=== PATIENT | female | born 1935 | race Caucasian/White ===

== ENCOUNTER 2020-06-15 15:35 | Inpatient (IN) | payer MEDICARE, OTHER ==
[~2020-06-15] VITALS: Ht 152.4 cm; Wt 72.6 kg
--- NOTE | 2020-06-15 15:48 | NUR ---
JENNA 89 from home for palpitation. placed on the monitor. EKC done, awaiting for MD bazzi.
--- NOTE | 2020-06-15 16:08 | NUR ---
patient ambulated to bathroom with steady gait, assisted by EMT
--- NOTE | 2020-06-15 16:25 | NUR ---
CALLED CARDIO DR. NESS.
[2020-06-15 16:26] LABS: BASOPHILS # (AUTO) 0.1 /CMM (0.0-0.2); BASOPHILS % (AUTO) 0.8 % (0.0-2.0); EOSINOPHILS % (AUTO) 0.6 % (0.0-6.0); HEMATOCRIT 43 % (33-45); HEMOGLOBIN 14.1 g/dL (11.5-14.8); LYMPHOCYTES % (AUTO) 13.1 % (20.0-44.0); MEAN CORPUSCULAR HGB CONC 33 g/dl (31.0-36.0); MEAN CORPUSCULAR VOLUME 86 fL (82-100); MONOCYTES # (AUTO) 0.6 /CMM (0.1-1.30); MONOCYTES % (AUTO) 8.2 % (2.0-12.0); NEUTROPHILS % (AUTO) 77.3 % (43.0-81.0); PLATELET COUNT (AUTO) 175 /CMM (150-450); RED BLOOD CELL COUNT(AUTO) 5.01 MIL/uL (4.0-5.2); WHITE BLOOD COUNT (AUTO) 7.7 K/uL (4.3-11.0)
[2020-06-15] MEDS ORDERED: AMIODARONE HCL 200 MG TABLET PO ONE (16:30)
[2020-06-15] MEDS ORDERED: ENOXAPARIN SODIUM 80 MG/0.8 ML DISP.SYRIN SQ ONE (16:33)
[2020-06-15] MEDS ORDERED: AMIODARONE HCL 200 MG TABLET ONE (16:33)
[2020-06-15 16:35] LABS: CALCIUM, SERUM 8.9 mg/dL (8.5-10.1); CARBON DIOXIDE 23 mmol/L (21-32); CHLORIDE 99 mmol/L (98-107); CREATININE 0.7 mg/dL (0.6-1.3); GLUCOSE 113 mg/dL (74-106); POTASSIUM 3.8 mmol/L (3.5-5.1); SODIUM SERUM 135 mmol/L (136-145); UREA NITROGEN, BLOOD 8 mg/dL (7-18)
[2020-06-15] MEDS ORDERED: LEVO50TA8 PO (16:47)
[2020-06-15] MEDS ORDERED: LOSA1TAB36 PO (16:47)
[2020-06-15] MEDS ORDERED: MECL-159 PO (16:47)
[2020-06-15] MEDS ORDERED: LINA290C PO (16:47)
[2020-06-15] MEDS ORDERED: AZAT50TA18 PO (16:47)
[2020-06-15] MEDS ORDERED: ALPR0.255 PO (16:47)
[2020-06-15] MEDS ORDERED: OMEP20CA15 PO (16:47)
[2020-06-15] MEDS ORDERED: ASPI-1169 PO (16:47)
[2020-06-15] MEDS ORDERED: AMIO200T4 PO (16:47)
[2020-06-15] MEDS ORDERED: METO25TA4 PO (16:47)
[2020-06-15] MEDS ORDERED: HYDR25TA4 PO (16:47)
[2020-06-15] MEDS ORDERED: SENN-175 PO (16:47)
[2020-06-15] MEDS ORDERED: ESCI10TA PO (16:47)
[2020-06-15] MEDS ORDERED: CYCL30DR OP (16:47)
[2020-06-15] MEDS ORDERED: METF-881 PO (16:47)
[2020-06-15] MEDS ORDERED: BISA5TAB PO (16:47)
[2020-06-15] MEDS ORDERED: ROSU10TA29 PO (16:47)
[2020-06-15] MEDS ORDERED: HYDR-500 PO (16:47)
[2020-06-15] MEDS ORDERED: ENOXAPARIN SODIUM 80 MG/0.8 ML DISP.SYRIN SQ SCH (17:00)
[2020-06-15 17:05] LABS: ALBUMIN 4.4 g/dL (3.4-5.0); BILIRUBIN,DIRECT 0.1 mg/dL (0.0-0.2); BILIRUBIN,TOTAL 0.5 mg/dL (0.2-1.0); TOTAL PROTEIN, SERUM 8.5 g/dL (6.4-8.2)
--- NOTE | 2020-06-15 17:05 | NUR ---
MOVE SHEET SUBMITTED AND CALLED FOR A TELE BED.
--- NOTE | 2020-06-15 17:06 | NUR ---
URINE COLLECTED AND SENT TO LAB
[2020-06-15] MEDS ORDERED: ACETAMINOPHEN 325 MG TABLET PO PRN (17:30)
[2020-06-15] MEDS ORDERED: ONDANSETRON HCL/PF 4 MG/2 ML VIAL IVP PRN (17:30)
[2020-06-15] MEDS ORDERED: BISACODYL (5 MG) 5 MG TABLET.DR PO PRN (17:30)
[2020-06-15] MEDS ORDERED: Z GUARD REMEDY 2 OZ OINT TP PRN (17:30)
[2020-06-15] MEDS ORDERED: HYDROCODONE/APAP 5/325MG TABLET PO PRN (17:30)
[2020-06-15] MEDS ORDERED: HOME MED MISCELLANEOUS XX SCH (17:30)
[2020-06-15] MEDS ORDERED: MAGNESIUM HYDROXIDE 30 ML UDC PO PRN (17:30)
[2020-06-15] MEDS ORDERED: MORPHINE SULFATE INJ 2 MG/ML DISP.SYRIN IV PRN (17:30)
[2020-06-15] MEDS ORDERED: MAG HYDROX/AL HYDROX/SIMETH 30 ML UDC PO PRN (17:30)
[2020-06-15 17:37] LABS: APPEARANCE,URINE Clear (CLEAR); BILIRUBIN,URINE Negative (NEGATIVE); BLOOD, URINE Trace-lysed Ery/uL (NEGATIVE); COLOR,URINE Yellow (YELLOW); KETONES,URINE Negative (NEGATIVE); LEUKOCYTE ESTERASE ,URINE Negative (NEGATIVE); NITRITE, URINE Negative (NEGATIVE); PH,URINE 7.5 (5.0-8.0); PROTEIN,URINE Negative (NEGATIVE); UGLUCOSE Negative (NEGATIVE); UROBILINOGEN,URINE 0.2 EU/dL (0.2)
[2020-06-15] MEDS ORDERED: INSULIN REGULAR, HUMAN 100 UNIT/ML 3 ML VIAL SQ PRN (18:00)
[2020-06-15] MEDS ORDERED: DEXTROSE 50%-WATER 50 ML DISP.SYRIN IV PRN (18:00)
[2020-06-15 18:02] LABS: BACTERIA,URINE Rare /HPF (None Seen); RBC,URINE 0-2 /HPF (0-2); SQUAMOUS EPITHELIAL CELL,UR None Seen /HPF (None Seen); WBC,URINE NONE SEEN /HPF (0-3)
--- NOTE | 2020-06-15 18:38 | NUR ---
room 311-2
--- NOTE | 2020-06-15 18:42 | NUR ---
report given to bere Rodriguez for berry
--- NOTE | 2020-06-15 19:37 | NUR ---
pt taken to 311 via acls protocol
--- NOTE | 2020-06-15 19:40 | NUR ---
BEATER OPERATOR OPEN NOTES RECEIVED PT VIA [facility]. PATIENT WAS ABLE TO AMBULATE TO BED. A/O X4, CZECH SPEAKING. ON RA, NO SOB/ ACUTE RESPIRATORY DISTRESS NOTED. IV IN R FOREARM, #18G IS PATENT AND INTACT. PATIENT ORIENTED TO ROOM. PT WAS ALSO ABLE TO AMBULATE TO BATHROOM. PT STATES SHE HAS NO CHEST PAIN OR ANY PAIN AT THE MOMENT. BED IS IN LOWEST LOCKED POSITION WITH SIDE RAILS UP X3, SEMI FOWLERS. CALL LIGHT IS WITHIN REACH. WILL CONTINUE TO MONITOR.
[2020-06-15 20:58] VITALS: BP 91/64
[2020-06-15] MEDS: BLOOD SUGAR DIAGNOSTIC 1 EACH STRIP IN SCH (21:37)
[2020-06-15] MEDS: ATORVASTATIN 10 MG TABLET PO SCH (21:38)
[2020-06-15] MEDS: SENNOSIDES 8.6 MG TABLET PO SCH (21:38)
[2020-06-15] MEDS: TEMAZEPAM 15 MG CAPSULE PO PRN (22:03)
[2020-06-16] VITALS: BP 133/68
[2020-06-16] MEDS: BLOOD SUGAR DIAGNOSTIC 1 EACH STRIP IN SCH ×4 (06:47→21:47)
--- NOTE | 2020-06-16 06:49 | NUR ---
NURSE SANE CLOSE NOTES PATIENT IS LAYING IN BED. A/O X4. ON RA, NO SOB/ ACUTE RESPIRATORY DISTRESS NOTED. TELE MONITOR READING A. FIB WITH PVC'S, 89. IV IN R FOREARM #18G IS PATENT AND INTACT. PT KEPT NPO THROUGH THE NIGHT. HAS NO COMPLAINTS OF PAIN AT THE MOMENT/ APPEARS COMFORTABLE. PT IS ABLE TO AMBULATE. BED IS IN LOWEST LOCKED POSITION WITH SIDE RAILS UP X3, SEMI FOWLERS. CALL LIGHT IS WITHIN REACH. WILL ENDORSE TO AM NURSE.
[2020-06-16 06:50] LABS: BASOPHILS # (AUTO) 0.1 /CMM (0.0-0.2); BASOPHILS % (AUTO) 0.7 % (0.0-2.0); EOSINOPHILS % (AUTO) 1.5 % (0.0-6.0); HEMATOCRIT 42 % (33-45); LYMPHOCYTES # (AUTO) 1.9 /CMM (0.8-4.8); LYMPHOCYTES % (AUTO) 24.6 % (20.0-44.0); MEAN CORPUSCULAR HGB CONC 33 g/dl (31.0-36.0); MEAN CORPUSCULAR VOLUME 85 fL (82-100); MONOCYTES % (AUTO) 12.6 % (2.0-12.0); NEUTROPHILS # (AUTO) 4.8 /CMM (1.8-8.9); NEUTROPHILS % (AUTO) 60.6 % (43.0-81.0); PLATELET COUNT (AUTO) 181 /CMM (150-450); RED BLOOD CELL COUNT(AUTO) 4.96 MIL/uL (4.0-5.2); WHITE BLOOD COUNT (AUTO) 7.9 K/uL (4.3-11.0)
[2020-06-16 07:20] LABS: CALCIUM, SERUM 9.3 mg/dL (8.5-10.1); CREATININE 1.1 mg/dL (0.6-1.3); MAGNESIUM 2.4 mg/dL (1.8-2.4); PHOSPHORUS 4.5 mg/dL (2.5-4.9); POTASSIUM 3.7 mmol/L (3.5-5.1)
[2020-06-16 08:00] VITALS: BP 121/64
[2020-06-16] MEDS: ESCITALOPRAM OXALATE (10 MG) 10 MG TABLET PO SCH (08:53)
[2020-06-16] MEDS: LOSARTAN/HCTZ 50-12.5MG/ 1 EA TABLET PO SCH (08:53)
[2020-06-16] MEDS: LEVOTHYROXINE SODIUM 50 MCG TABLET PO SCH (08:53)
[2020-06-16] MEDS: AZATHIOPRINE 50 MG TABLET PO SCH (08:57)
[2020-06-16] MEDS ORDERED: AMIODARONE HCL 200 MG TABLET PO SCH (09:00)
[2020-06-16] MEDS: METOPROLOL SUCCINATE 25 MG TAB.SR.24H PO SCH (09:00)
[2020-06-16] MEDS ORDERED: ENOXAPARIN SODIUM 60 MG/0.6 ML DISP.SYRIN SQ SCH (09:00)
[2020-06-16] MEDS: POLYVINYL ALCOHOL/POVIDONE 0.4 ML DROPERETTE OP SCH ×2 (10:34→18:10)
[2020-06-16 14:03] LABS: THYROID STIMULATING HORMONE 2.211 uIU/mL (0.358-3.74)
[2020-06-16 16:00] VITALS: BP 122/67
[2020-06-16 17:18] LABS: THYROID STIMULATING HORMONE 2.021 uIU/mL (0.358-3.74)
[2020-06-16] MEDS: AMIODARONE HCL 200 MG TABLET PO SCH (18:11)
[2020-06-16] MEDS: APIXABAN 5 MG TABLET PO SCH (18:12)
--- NOTE | 2020-06-16 19:30 | NUR ---
SAMPLE MAKER ORIGINAL OPEN NOTES PATIENT IS LAYING IN BED. A/O X4. ON RA SATURATING > 95%, NO SOB/ ACUTE RESPIRATORY DISTRESS NOTED. IV IN R FOREARM #18G IS PATENT AND INTACT. PT DENIES ANY PAIN AT THE MOMENT. BED IS IN LOWEST LOCKED POSITION WITH SIDE RAILS UP X3, SEMI FOWLERS. CALL LIGHT IS WITHIN REACH. WILL CONTINUE TO MONITOR.
[2020-06-16 20:00] VITALS: BP 126/64
[2020-06-16] MEDS: ATORVASTATIN 10 MG TABLET PO SCH (21:47)
[2020-06-16] MEDS: SENNOSIDES 8.6 MG TABLET PO SCH (21:47)
[2020-06-16] MEDS: TEMAZEPAM 15 MG CAPSULE PO PRN (21:47)
[2020-06-17 00:07] VITALS: BP 123/57
--- NOTE | 2020-06-17 03:25 | NUR ---
SEO MANAGER NOTES DIRECT MARKETING REPRESENTATIVE ARRIVED TO ROOM AND FOUND PATIENT ON THE FLOOR NEXT TO HER BED. FALL WAS UNWITNESSED. PER PATIENT, SHE STATED SHE WENT TO THE BATHROOM, WALKED BACK TO HER BED AND FELL NEXT TO IT. PT DENIES ANY PAIN OR INJURY AND STATES SHE DID NOT HIT HER HEAD. SKIN ASSESSMENT DONE. PATIENT ABLE TO FLEX AND EXTEND LEGS. NO INJURIES NOTED. PATIENT WAS ASSISTED BACK TO BED. BP OBTAINED: 103/56, HR 53. CHARGE NURSE AWARE. NURSING FIRE AND SAFETY HELPER AWARE. MD AWARE, PER MD NO ORDERS NEEDED. ASSESSED SKIN, CHECKED LEG FLEXION/ EXTENSION, OBTAINED BLOOD PRESSURE(103/56) + HEART RATE(53).
[2020-06-17 04:12] VITALS: BP 103/56
[2020-06-17] MEDS: BLOOD SUGAR DIAGNOSTIC 1 EACH STRIP IN SCH ×2 (06:33→12:00)
--- NOTE | 2020-06-17 06:53 | NUR ---
SPACE SCIENCES DIRECTOR NOTES JUST SPOKE TO PT'S SON(BABAR) REGARDING HER FALL. EXPLAINED THE SITUATION TO HIM + INTERVENTIONS THAT WERE DONE AFTERWARDS. PT'S SON ALSO STATED THAT HE WOULD WANT HIS MOM TO BE DISCHARGED TODAY BECAUSE HER SISTER JUST AND HER IS TOMORROW.
--- NOTE | 2020-06-17 06:55 | NUR ---
PARTS COUNTER SALES PERSON CLOSE NOTES PATIENT IS LAYING IN BED. A/O X4. ON RA, NO SOB/ ACUTE RESPIRATORY DISTRESS NOTED. TELE MONITOR READING SINUS CHE WITH PVCS, 56. IV IN RIGHT FOREARM #18G IS PATENT AND INTACT. ALL ACCUCHECKS DONE. PT ABLE TO AMBULATE WITH ASSISTANCE/ WALKER. PT HAS NO COMPLAINTS OF PAIN AT THE MOMENT. BED IS IN LOWEST LOCKED POSITION WITH SIDE RAILS UP X3, SEMI FOWLERS. CALL LIGHT IS WITHIN REACH. WILL ENDORSE TO AM NURSE.
[2020-06-17 08:00] VITALS: BP 113/61
--- NOTE | 2020-06-17 08:10 | NUR ---
Amiodarone is not administrated in am due ti HR 57
[2020-06-17] MEDS: ESCITALOPRAM OXALATE (10 MG) 10 MG TABLET PO SCH (08:48)
[2020-06-17] MEDS: LEVOTHYROXINE SODIUM 50 MCG TABLET PO SCH (08:48)
[2020-06-17] MEDS: METOPROLOL SUCCINATE 25 MG TAB.SR.24H PO SCH (08:48)
[2020-06-17] MEDS: LOSARTAN/HCTZ 50-12.5MG/ 1 EA TABLET PO SCH (08:49)
[2020-06-17] MEDS: APIXABAN 5 MG TABLET PO SCH (08:50)
[2020-06-17 08:51] VITALS: BP 113/61
[2020-06-17] MEDS: AMIODARONE HCL 200 MG TABLET PO SCH (08:51)
[2020-06-17] MEDS: POLYVINYL ALCOHOL/POVIDONE 0.4 ML DROPERETTE OP SCH (08:53)
[2020-06-17] MEDS: AZATHIOPRINE 50 MG TABLET PO SCH (08:54)
--- NOTE | 2020-06-17 16:00 | NUR ---
Patient cleared for d/c to home by . Rhiannaen is awake alert and oriented x4, VS are stable and within base line; HR 62. Patient is ambulatory with assistance/walker. Patient instructed and educated on new prescribed meds ; and s/e. patient verbalized understanding . Patient received a prescription. All needs attended prior d/c. D/C instructions provided and patient sighed valuable form. All belongings with the patient including money , cell phone and bellows charger assembler. IV line and ID wrist band removed. Patient has no skin issues. Patient safely transferred to [facility], [place] via wheelchair accompanied by KATTY Gasca. Pt picked up by son.
== END 2020-06-17 16:11 | disposition home health service (06) | DRG 309 ==
LOC: ER 15:41 → TELE 18:40 → MED 06-17 11:22
PROVIDERS: ADMIT Nurse Practitioner Acute Care; ATTEND Internal Medicine
DX: I48.91 Unspecified atrial fibrillation (principal); E87.1 Hypo-osmolality and hyponatremia; E03.9 Hypothyroidism, unspecified; E11.9 Type 2 diabetes mellitus without complications; E66.9 Obesity, unspecified; Z68.31 Body mass index [BMI] 31.0-31.9, adult; F32.9 Major depressive disorder, single episode, unspecified; K58.9 Irritable bowel syndrome, unspecified; I10 Essential (primary) hypertension; E78.5 Hyperlipidemia, unspecified; M06.9 Rheumatoid arthritis, unspecified; I48.92 Unspecified atrial flutter; Z90.49 Acquired absence of other specified parts of digestive tract; Z79.899 Other long term (current) drug therapy; Z79.01 Long term (current) use of anticoagulants
CPT/HCPCS: 36415; 71045-TC; 80048-TC; 80061-TC; 80076-TC; 81000-TC; 82962-TC; 83735-TC; 84100-TC; 84439-TC; 84443-TC; 84484-TC; 85025-TC; 87081-TC; 93307-TC; A6403; C9803-CS; G0378; J1650; J1815; J7050; J7500

== ENCOUNTER 2021-10-23 19:44 | Emergency (ER) | payer MEDICARE, OTHER ==
[~2021-10-23] VITALS: Ht 172.7 cm; Wt 65.8 kg
[~2021-10-23 19:44] MED LIST: ALPR0.255 PO; AMIO200T5 PO; ASPI-1169 PO; AZAT50TA18 PO; BISA5TAB PO; CYCL30DR OP; ESCI10TA PO; HYDR-500 PO; HYDR25TA4 PO; LEVO50TA8 PO; LINA290C PO; LOSA1TAB36 PO; MECL-159 PO; METF-881 PO; METO25TA4 PO; OMEP20CA15 PO; ROSU10TA29 PO; SENN-175 PO
--- NOTE | 2021-10-23 19:55 | NUR ---
JENNA 89 FROM HOME C/O NOVOA, HIGH BP AND ELEVATED HR WHILE USING AT HOME V/S MACHINE. PT DENIES ANY CHEST PAIN. BREATHING IS EVEN AND UNLABORED. PT CHANGED INTO A GOWN AND PLACED ON MONITOR AND ALL V/S STABLE HEART RATE 103.
--- NOTE | 2021-10-23 20:24 | NUR ---
RFA #20G S/L; PATENT AND INTACT. BLOOD COLLECTED AND SENT TO LAB
[2021-10-23] MEDS ORDERED: IV NS 0.9% 500 ML BAG IV ONE (20:30)
[2021-10-23 20:55] LABS: ALANINE AMINOTRANSFERASE 20 U/L (12-78); ALKALINE PHOSPHATASE 46 U/L (46-116); ASPARTATE AMINOTRANSFERASE 26 U/L (15-37); BILIRUBIN,DIRECT 0.1 mg/dL (0.0-0.2); BILIRUBIN,TOTAL 0.2 mg/dL (0.2-1.0); CALCIUM, SERUM 8.8 mg/dL (8.5-10.1); CARBON DIOXIDE 25 mmol/L (21-32); CHLORIDE 98 mmol/L (98-107); CREATININE 0.8 mg/dL (0.6-1.3); GLUCOSE 116 mg/dL (74-106); SODIUM SERUM 131 mmol/L (136-145); TOTAL PROTEIN, SERUM 7.6 g/dL (6.4-8.2); UREA NITROGEN, BLOOD 17 mg/dL (7-18)
[2021-10-23 21:05] LABS: BASOPHILS # (AUTO) 0.1 K/uL (0.0-0.2); BASOPHILS % (AUTO) 0.8 % (0.0-2.0); EOSINOPHILS % (AUTO) 1.2 % (0.0-6.0); HEMATOCRIT 35 % (33-45); HEMOGLOBIN 11.4 g/dL (11.5-14.8); LYMPHOCYTES # (AUTO) 1.6 K/uL (0.8-4.8); LYMPHOCYTES % (AUTO) 17.4 % (20.0-44.0); MEAN CORPUSCULAR HGB CONC 33 g/dl (31.0-36.0); MEAN CORPUSCULAR VOLUME 78 fL (82-100); MONOCYTES # (AUTO) 0.9 K/uL (0.1-1.30); MONOCYTES % (AUTO) 10.2 % (2.0-12.0); NEUTROPHILS # (AUTO) 6.6 K/uL (1.8-8.9); NEUTROPHILS % (AUTO) 70.4 % (43.0-81.0); PLATELET COUNT (AUTO) 153 K/uL (150-450); RED BLOOD CELL COUNT(AUTO) 4.43 MIL/uL (4.0-5.2); WHITE BLOOD COUNT (AUTO) 9.3 K/uL (4.3-11.0)
[2021-10-23] MEDS ORDERED: POTASSIUM CHLORIDE 20 MEQ TAB.PRT.SR PO ONE ×2 (21:30→21:34)
--- NOTE | 2021-10-23 21:52 | NUR ---
Patient discharged to home in stable condition. Written and verbal after care instructions given. Patient verbalizes understanding of instruction.
[2021-10-23 21:57] VITALS: BP 132/68
== END 2021-10-23 22:18 | disposition home or self-care (01) ==
LOC: ER 19:50
DX: R00.2 Palpitations (principal); I10 Essential (primary) hypertension; I48.91 Unspecified atrial fibrillation; E11.9 Type 2 diabetes mellitus without complications; Z60.2 Problems related to living alone; Z79.899 Other long term (current) drug therapy; Z79.84 Long term (current) use of oral hypoglycemic drugs; Z79.82 Long term (current) use of aspirin
CPT/HCPCS: 36415; 71045; 80048; 80076; 84484; 85025; 93005; 99285; J7040

== ENCOUNTER 2022-07-21 20:19 | Inpatient (IN) | payer MEDICARE, OTHER ==
[~2022-07-21] VITALS: Ht 157.5 cm; Wt 82.3 kg
--- NOTE | 2022-07-21 21:19 | NUR ---
BIBRA 89 FROM HOME C/O PALPITATIONS STARTED THIS MORNING. PT AWAKE AND ALERT X4 BREATHING UNLABORED AMBULATORY WITH STEADY GAIT. PLACED ON MONITOR AND NOTED TACHYCARDIC IN 120S.
--- NOTE | 2022-07-21 21:50 | NUR ---
PEDRO SENT TO LAB
--- NOTE | 2022-07-21 21:50 | NUR ---
20G IV STARTED AT . BLOOD DRAWN AND SENT TO LAB
[2022-07-21] MEDS ORDERED: IV NS 0.9% 1,000 ML BAG IV ONE (22:00)
[2022-07-21 22:03] LABS: BASOPHILS # (AUTO) 0.1 K/uL (0.0-0.2); BASOPHILS % (AUTO) 0.7 % (0.0-2.0); EOSINOPHILS % (AUTO) 2.4 % (0.0-6.0); HEMATOCRIT 41 % (33-45); HEMOGLOBIN 13.2 g/dL (11.5-14.8); LYMPHOCYTES # (AUTO) 1.8 K/uL (0.8-4.8); LYMPHOCYTES % (AUTO) 22.7 % (20.0-44.0); MEAN CORPUSCULAR HGB CONC 32 g/dl (31.0-36.0); MEAN CORPUSCULAR VOLUME 78 fL (82-100); MONOCYTES % (AUTO) 12.6 % (2.0-12.0); NEUTROPHILS # (AUTO) 4.8 K/uL (1.8-8.9); NEUTROPHILS % (AUTO) 61.6 % (43.0-81.0); PLATELET COUNT (AUTO) 147 K/uL (150-450); WHITE BLOOD COUNT (AUTO) 7.8 K/uL (4.3-11.0)
[2022-07-21 22:11] LABS: CARBON DIOXIDE 25 mmol/L (21-32); CHLORIDE 106 mmol/L (98-107); CREATININE 0.9 mg/dL (0.6-1.3); GLUCOSE 129 mg/dL (74-106); POTASSIUM 3.4 mmol/L (3.5-5.1); SODIUM SERUM 138 mmol/L (136-145); UREA NITROGEN, BLOOD 16 mg/dL (7-18)
[2022-07-21 22:29] LABS: ALANINE AMINOTRANSFERASE 19 U/L (12-78); ALBUMIN 3.8 g/dL (3.4-5.0); ALKALINE PHOSPHATASE 70 U/L (46-116); ASPARTATE AMINOTRANSFERASE 24 U/L (15-37); BILIRUBIN,DIRECT 0.1 mg/dL (0.0-0.2); BILIRUBIN,TOTAL 0.3 mg/dL (0.2-1.0); TOTAL PROTEIN, SERUM 7.6 g/dL (6.4-8.2)
[2022-07-21] MEDS ORDERED: CT SWABBABLE VALVE TRANS SET 1 EA INFUS.SET MC ONE (22:34)
[2022-07-21] MEDS ORDERED: IV NS 0.9% 250 ML IV ONE (22:34)
[2022-07-21] MEDS ORDERED: IOHEXOL-350 100 ML VIAL IV ONE (22:34)
--- NOTE | 2022-07-21 22:36 | NUR ---
PT BEING TRANSPORTED TO CT
[2022-07-21] MEDS ORDERED: CEFEPIME 1 GM VIAL ONE (23:27)
[2022-07-21] MEDS ORDERED: CEFEPIME 1 GM in IV D5W 50 ML IV ONE (23:30)
--- NOTE | 2022-07-22 00:50 | NUR ---
BED 311-1
--- NOTE | 2022-07-22 01:18 | NUR ---
REPORT GIVEN TO IVONE
--- NOTE | 2022-07-22 01:35 | NUR ---
PT TRANSPORTED TO ROOM 311-1 ON CARDIAC PER ACLS IN STABLE CONDITION. WALKER LEFT AT BEDSIDE.
--- NOTE | 2022-07-22 01:57 | NUR ---
BUSINESS OFFICE COORDINATORVICE PRESIDENT & GENERAL MANAGER [place] [place] NOTE PATIENT ARRIVED ON UNIT FROM ER, PT ALERT/ORIENTED X 3, PT BAHAMIAN SPEAKING, ER NURSE PROVIDED TRANSLATION. PT STABLE ON RA, NO S/S OF DISTRESS OR SOB NOTED, BREATHING EVEN AND UNLABORED. PT ON EXTERNAL CIVIL ENGINEER READING SINUS RHYTHM, HR: 68. IV ACCESS ON RIGHT FOREARM #20G INTACT AND FLUSHING WELL. PATIENT AMBULATORY WITH WALKER. PATIENT STATES SHE USES PARTIAL DENTURES BUT DOESN'T HAVE THEM ON. PT DENIES PACEMAKER, NO HEARING AID. PATIENT VACCINATED FOR COVID. ORIENTED PATIENT TO ROOM AND HOW TO USE CALL LIGHT. SAFETY MEASURES IN PLACE: CALL LIGHT WITHIN REACH, SIDE RAILS UP X 2, BED LOCKED IN LOWEST POSITION, BED ALARM ON. WILL CONTINUE TO MONITOR
[2022-07-22 02:00] VITALS: BP 113/47
[2022-07-22] MEDS ORDERED: *INSULIN REGULAR(HUMULIN R)HUM 100 UNIT/ML VIAL SQ PRN (03:00)
[2022-07-22] MEDS ORDERED: POTASSIUM CHLORIDE 20 MEQ TAB.PRT.SR PO ONE (03:00)
[2022-07-22] MEDS ORDERED: ACETAMINOPHEN 325 MG TABLET PO PRN (03:00)
[2022-07-22] MEDS ORDERED: DEXTROSE 50%-WATER 50 ML DISP.SYRIN IV PRN (03:00)
[2022-07-22] MEDS ORDERED: ONDANSETRON HCL/PF 4 MG/2 ML VIAL IVP PRN (03:00)
[2022-07-22] MEDS ORDERED: IV NS 0.9% 1,000 ML IV PRN (03:00)
[2022-07-22 04:00] VITALS: BP 130/50
--- NOTE | 2022-07-22 06:29 | NUR ---
AUTOMATION CLERK CLOSING NOTE PATIENT AWAKE IN BED, ALERT/ORIENTED X 3, PT CAMEROONIAN SPEAKING BUT ABLE TO MAKE BASIC NEEDS KNOWN. PATIENT STABLE ON ROOM AIR, NO S/S OF DISTRESS OR SOB NOTED, BREATHING EVEN AND UNLABORED. PATIENT ON EXTERNAL VIDEO PRODUCTION ASSISTANT READING SINUS RHYTHM, HR: 62. PATIENT ABLE TO AMBULATE TO BATHROOM WITH WALKER, STEADY GAIT. IV ACCESS ON RFA #20G INTACT AND INFUSING NS @ 75 ML/HR. BLOOD SUGAR 117 THIS AM, NO COVERAGE PER SLIDING SCALE. SAFETY MEASURES IN PLACE: CALL LIGHT WITHIN REACH, SIDE RAILS UP X 2, BED LOCKED IN LOWEST POSITION, BED ALARM ON. WILL ENDORSE TO DAYSHIFT NURSE FOR CONTINUITY OF CARE
[2022-07-22] MEDS: INSULIN REGULAR, HUMAN 100 UNIT/ML 3 ML VIAL SQ PRN ×4 (06:50→22:42)
[2022-07-22] MEDS: BLOOD SUGAR DIAGNOSTIC 1 EACH STRIP IN SCH ×4 (06:50→22:28)
--- NOTE | 2022-07-22 07:35 | NUR ---
RN OPENING NOTE- PT AWAKE IN BED, ALERT/ORIENTED X PERSON PLACE PURPOSE, PT [place]ORE[place] SPEAKING BUT ABLE TO MAKE BASIC NEEDS KNOWN. PATIENT STABLE ON ROOM AIR, NO S/S OF DISTRESS OR SOB NOTED, BREATHING EVEN AND UNLABORED. PATIENT ON EXTERNAL HEAVY DUTY MECHANIC READING SINUS RHYTHM, HR: 64. AMBULATORY W FWW. STEADY GAIT. IV ACCESS ON RFA #20G INTACT AND INFUSING NS @ 75 ML/HR. SAFETY MEASURES IN PLACE: CALL LIGHT WITHIN REACH, SIDE RAILS UP X 2, BED LOCKED IN LOWEST POSITION, BED ALARM ON. MONITOR AND ASSIST
[2022-07-22 08:00] VITALS: BP 102/57
[2022-07-22] MEDS ORDERED: MELO-107 PO (08:38)
[2022-07-22] MEDS ORDERED: LOSA50TA39 PO (08:38)
[2022-07-22] MEDS ORDERED: AMLO-212 PO (08:38)
[2022-07-22] MEDS: ENOXAPARIN SODIUM 40 MG/0.4 ML DISP.SYRIN SQ SCH (09:28)
[2022-07-22] MEDS: CEFEPIME 2 GM in IV D5W 100 ML IV SCH ×2 (09:29→21:24)
[2022-07-22] MEDS: POTASSIUM CHLORIDE 20 MEQ TAB.PRT.SR PO SCH ×2 (11:04→14:05)
[2022-07-22] MEDS: PANTOPRAZOLE 40 MG TABLET.DR PO SCH (11:04)
[2022-07-22 12:00] VITALS: BP 126/63
[2022-07-22] MEDS ORDERED: TETRACYCLINE HCL 250 MG CAPSULE PO SCH (14:00)
[2022-07-22] MEDS: predniSONE 20 MG TABLET PO SCH (14:35)
[2022-07-22] MEDS: DOXYCYCLINE HYCLATE (100 MG) 100 MG TABLET PO SCH ×2 (14:35→21:13)
[2022-07-22 16:00] VITALS: BP 117/63
--- NOTE | 2022-07-22 18:29 | NUR ---
RN CLOSING NOTE- PT AWAKE AND AMBULATORY IN HALLS WITH FWW. STEADY GAIT, ALERT/ORIENTED X PERSON PLACE PURPOSE, PT DIVEHI SPEAKING BUT ABLE TO MAKE BASIC NEEDS KNOWN. PATIENT STABLE ON ROOM AIR, NO S/S OF DISTRESS OR SOB NOTED, BREATHING EVEN AND NON LABORED. PATIENT ON EXTERNAL MOTORMAN/WOMAN READING SINUS RHYTHM, HR: 88. IV ACCESS ON RFA #20G INTACT. SAFETY MEASURES IN PLACE: CALL LIGHT WITHIN REACH, SIDE RAILS UP X 2, BED LOCKED IN LOWEST POSITION, BED ALARM ON. MONITOR AND ASSIST
--- NOTE | 2022-07-22 18:50 | NUR ---
RN NOTE - HR [address] NESS NOTIFIED. ORDERED 2100 DOSE TAMBOCOR NOW. COMPLIED
[2022-07-22] MEDS: FLECAINIDE ACETATE (100 MG) 100 MG TABLET PO SCH (18:54)
--- NOTE | 2022-07-22 18:55 | NUR ---
RN NOTE- HR 126. TAMBOCOR 100 MG TAB ADMINISTERED
[2022-07-22 20:00] VITALS: BP 120/76
[2022-07-22] MEDS: ATORVASTATIN 10 MG TABLET PO SCH (21:12)
[2022-07-22] MEDS ORDERED: METOPROLOL SUCCINATE 25 MG TAB.SR.24H PO ONE (21:30)
--- NOTE | 2022-07-22 22:00 | NUR ---
RN NOTE PT REPORTING PALPITATIONS NOTED IN THE MONITOR TO BE HAVING SR 120-140S TAMBOCOR WAS GIVEN BY DAY SHIFT NURSE FOR HR HOWEVER PTS SYMPTOMS PERSISTED CONTACTED RESIDENT HALL DIRECTOR RECEIVED ONE TIME ORDER FOR METOPROL 25MG P.O TOLERATED WELL. PTS HEART RATE IS NOW READING SR 60-70S ON THE TELE MONITOR. PT IS NO LONGER REPORTING PALPITATIONS. PT ADVISED TO CALL FOR ASSISTANCE WHEN GETTING UP. PT VERBALIZED UNDERSTANDING CALL LIGHT WITHIN REACH. TABLE WITHIN REACH.. ALL NEEDS MET AT THIS TIME.
[2022-07-23] VITALS: BP 103/47
[2022-07-23 04:00] VITALS: BP 130/74
[2022-07-23] MEDS: BLOOD SUGAR DIAGNOSTIC 1 EACH STRIP IN SCH ×4 (06:31→21:05)
[2022-07-23] MEDS: INSULIN REGULAR, HUMAN 100 UNIT/ML 3 ML VIAL SQ PRN ×2 (06:31→17:11)
--- NOTE | 2022-07-23 06:40 | NUR ---
RN CLOSING NOTE PT AWAKE ALERT/ORIENTED X4 PT MAORI SPEAKING BUT ABLE TO MAKE BASIC NEEDS KNOWN. PATIENT STABLE ON ROOM AIR, NO S/S OF DISTRESS OR SOB NOTED, BREATHING EVEN AND NON LABORED. PATIENT ON EXTERNAL DRAWING MACHINE OPERATOR READING SINUS RHYTHM, HR: 56-60S. IV ACCESS ON RFA #20G INTACT. SAFETY MEASURES IN PLACE: CALL LIGHT WITHIN REACH, SIDE RAILS UP X 2, BED LOCKED IN LOWEST POSITION, BED ALARM ON. MONITOR AND ASSIST WILL ENDORSE CARE TO DAY SHIFT NURSE FOR JUANA.
[2022-07-23 07:01] LABS: BASOPHILS % (AUTO) 0.3 % (0.0-2.0); EOSINOPHILS % (AUTO) 0.1 % (0.0-6.0); HEMATOCRIT 36 % (33-45); HEMOGLOBIN 11.7 g/dL (11.5-14.8); LYMPHOCYTES # (AUTO) 0.9 K/uL (0.8-4.8); LYMPHOCYTES % (AUTO) 12.1 % (20.0-44.0); MEAN CORPUSCULAR HGB CONC 33 g/dl (31.0-36.0); MEAN CORPUSCULAR VOLUME 76 fL (82-100); MONOCYTES # (AUTO) 0.6 K/uL (0.1-1.30); NEUTROPHILS % (AUTO) 79.5 % (43.0-81.0); PLATELET COUNT (AUTO) 167 K/uL (150-450); WHITE BLOOD COUNT (AUTO) 7.6 K/uL (4.3-11.0)
[2022-07-23 07:17] LABS: CALCIUM, SERUM 9.1 mg/dL (8.5-10.1); CREATININE 0.8 mg/dL (0.6-1.3); MAGNESIUM 2.2 mg/dL (1.8-2.4); PHOSPHORUS 3.3 mg/dL (2.5-4.9); POTASSIUM 4.3 mmol/L (3.5-5.1)
[2022-07-23 08:00] VITALS: BP 123/70
--- NOTE | 2022-07-23 08:12 | NUR ---
RN OPENING NOTE PATIENT RECEIVED IN BED, AO X 3, POLISH SPEAKING, ABLE TO RESPONDS ALL STIMULI. IN NO ACUTE DISTRESS NOTED. RESPIRATORY EVEN AND UNLABORED IN ROOM AIR. SKIN IS WARM TO TOUCH, KEEP CLEAN/DRY. KEPT ELEVATED HOB FOR ENSURE AIRWAY AND ASPIRATION PRECAUTION, ALSO LOWEST POSITION OF THE BED, S/R UP X 3, BED ALARM IS ON AT ALL THE TIMES. ALL SAFETY PRECAUTION APPLIED. CALL LIGHT WITHIN REACH, WILL CONTINUE TO MONITOR.
[2022-07-23] MEDS: ENOXAPARIN SODIUM 40 MG/0.4 ML DISP.SYRIN SQ SCH (08:40)
[2022-07-23] MEDS: CEFEPIME 2 GM in IV D5W 100 ML IV SCH ×2 (08:40→20:21)
[2022-07-23] MEDS: METOPROLOL SUCCINATE 25 MG TAB.SR.24H PO SCH (08:41)
[2022-07-23] MEDS: ASPIRIN 81 MG TAB.CHEW PO SCH (08:41)
[2022-07-23] MEDS: predniSONE 20 MG TABLET PO SCH (08:41)
[2022-07-23] MEDS: PANTOPRAZOLE 40 MG TABLET.DR PO SCH (08:42)
[2022-07-23] MEDS: VALSARTAN 80 MG TABLET PO SCH (08:42)
[2022-07-23] MEDS: DOXYCYCLINE HYCLATE (100 MG) 100 MG TABLET PO SCH ×2 (08:42→21:05)
[2022-07-23] MEDS: FLECAINIDE ACETATE (100 MG) 100 MG TABLET PO SCH ×2 (08:46→21:05)
[2022-07-23] MEDS: LEVOTHYROXINE SODIUM 50 MCG TABLET PO SCH (08:47)
[2022-07-23] MEDS ORDERED: LOSARTAN POTASSIUM 50 MG TABLET PO SCH (09:00)
[2022-07-23] MEDS ORDERED: AMLODIPINE BESYLATE 5 MG TABLET PO SCH (09:00)
[2022-07-23] MEDS ORDERED: MAGNESIUM HYDROXIDE 30 ML UDC PO PRN (13:00)
[2022-07-23 16:00] VITALS: BP 113/57
--- NOTE | 2022-07-23 18:36 | NUR ---
RN CLOSING NOTE PATIENT IN BED RESTING. IN NO ACUTE DISTRESS NOTED. RESPIRATORY EVEN AND UNLABORED IN ROOM AIR. SKIN IS WARM TO TOUCH, KEEP CLEAN/DRY. KEPT ELEVATED HOB FOR ENSURE AIRWAY AND ASPIRATION PRECAUTION. BED IN LOWEST POSITION AND LOCKED. BED ALARM IS ON AT ALL THE TIMES. ALL SAFETY MEASURE APPLIED. CALL LIGHT WITHIN REACH, WILL ENDORSED TO NEXT SHIFT.
[2022-07-23 20:00] VITALS: BP 123/50
[2022-07-23] MEDS: ATORVASTATIN 10 MG TABLET PO SCH (21:05)
[2022-07-24] MEDS: INSULIN REGULAR, HUMAN 100 UNIT/ML 3 ML VIAL SQ PRN (06:21)
--- NOTE | 2022-07-24 06:46 | NUR ---
RN OPENING NOTE PATIENT IN BED RESTING. IN NO ACUTE DISTRESS NOTED. RESPIRATORY EVEN AND UNLABORED IN ROOM AIR. SKIN IS WARM TO TOUCH, KEEP CLEAN/DRY. KEPT ELEVATED HOB FOR ENSURE AIRWAY AND ASPIRATION PRECAUTION. BED IN LOWEST POSITION AND LOCKED. ALL SAFETY MEASURE APPLIED. CALL LIGHT WITHIN REACH, WILL ENDORSED TO NEXT SHIFT.
[2022-07-24] MEDS: LEVOTHYROXINE SODIUM 50 MCG TABLET PO SCH (07:20)
[2022-07-24] MEDS: BLOOD SUGAR DIAGNOSTIC 1 EACH STRIP IN SCH (07:20)
--- NOTE | 2022-07-24 07:20 | NUR ---
MS RN OPENING NOTES: RECEIVED PT IN BED AWAKE, ALERT AND ORIENTED X IRISH SPEAKING. NO SOB OR CARDIAC DISTRESS NOTED. ON ROOM AIR AND TOLERATING WELL. DENIES ANY PAIN AT THIS TIME. NOTED WITH IV ACCESS ON RFA GAUGE 20 PATENT,INTACT AND FLUSHING WELL SL. SAFETY MEASURES MAINTAINED: BED LOCKED AND IN LOWEST POSITION, SIDE RAILS UP X 2, CALL LIGHT IN EASY REACH FOR HELP. WILL MONITOR ACCORDINGLY.
[2022-07-24] MEDS: CEFEPIME 2 GM in IV D5W 100 ML IV SCH (08:13)
[2022-07-24 08:14] VITALS: BP 136/61
[2022-07-24] MEDS: VALSARTAN 80 MG TABLET PO SCH (08:14)
[2022-07-24] MEDS: DOXYCYCLINE HYCLATE (100 MG) 100 MG TABLET PO SCH (08:14)
[2022-07-24] MEDS: METOPROLOL SUCCINATE 25 MG TAB.SR.24H PO SCH (08:14)
[2022-07-24] MEDS: PANTOPRAZOLE 40 MG TABLET.DR PO SCH (08:14)
[2022-07-24] MEDS: ASPIRIN 81 MG TAB.CHEW PO SCH (08:14)
[2022-07-24] MEDS: predniSONE 20 MG TABLET PO SCH (08:15)
[2022-07-24] MEDS: FLECAINIDE ACETATE (100 MG) 100 MG TABLET PO SCH (08:16)
[2022-07-24] MEDS: ENOXAPARIN SODIUM 40 MG/0.4 ML DISP.SYRIN SQ SCH (08:17)
[2022-07-24] MEDS ORDERED: PRED20TA PO (09:58)
[2022-07-24] MEDS ORDERED: FLEC100T3 PO (09:58)
[2022-07-24] MEDS ORDERED: VALS80TA31 PO (09:58)
[2022-07-24] MEDS ORDERED: DOXY100T2 PO (09:58)
--- NOTE | 2022-07-24 11:59 | NUR ---
ROLLER COASTER DESIGNER NOTES: PATIENT DC HOME ACCOMPANIED BY BABAR (SON). PATIENT ALERT AND ORIENTED X 4 [place] SPEAKING. NO SOB OR CARDIAC DISTRESS NOTED. DISCHARGE PACKET, INSTRUCTIONS GIVEN TO PT AND VERBALIZED UNDERSTANDING. IV ACCESS REMOVED. REMOVED IDENTIFICATION BAND. ALL BELONGINGS CARRIED WITH PATIENT. NO SKIN ISSUES, ABDOMEN SOFT NOT DISTENDED. INSTRUCTED SON TO FOLLOW UP WITH STUDIO MUSICIAN IN 10 DAYS, FOLLOW UP WITH CARDIO IN 1 WEEK, FOLLOW UP WITH PCP IN A WEEK. SON VERBALIZED UNDERSTANDING, RN HIGHLIGHTED THE DISCHARGE INSTRUCTIONS. PT LEFT THE UNIT STABLE. ACCOMPANIED BY PATENTS EXAMINER VIA WHEELCHAIR.
== END 2022-07-24 11:50 | disposition home health service (06) | DRG 206 ==
LOC: ER 20:30 → TELE 07-22 01:05 → MED 07-23 08:45
PROVIDERS: ADMIT Internal Medicine; ATTEND Internal Medicine
DX: J70.4 Drug-induced interstitial lung disorders, unspecified (principal); E87.1 Hypo-osmolality and hyponatremia; I48.0 Paroxysmal atrial fibrillation; E11.9 Type 2 diabetes mellitus without complications; Z20.822 Contact with and (suspected) exposure to COVID-19; E78.5 Hyperlipidemia, unspecified; Z79.84 Long term (current) use of oral hypoglycemic drugs; Z79.82 Long term (current) use of aspirin; Z79.899 Other long term (current) drug therapy; E03.9 Hypothyroidism, unspecified; F32.A Depression, unspecified; K58.9 Irritable bowel syndrome, unspecified; M06.9 Rheumatoid arthritis, unspecified; Z68.31 Body mass index [BMI] 31.0-31.9, adult; E66.9 Obesity, unspecified; Z90.49 Acquired absence of other specified parts of digestive tract; E87.6 Hypokalemia; I10 Essential (primary) hypertension; T46.2X5A Adverse effect of other antidysrhythmic drugs, initial encounter; Y92.009 Unspecified place in unspecified non-institutional (private) residence as the place of occurrence of the external cause
CPT/HCPCS: 36415; 71045-TC; 80048-TC; 80061-TC; 80076-TC; 82962-TC; 83735-TC; 83880; 84100-TC; 84484-TC; 85025-TC; 85378-TC; 85730-TC; 87081-TC; C9803; G0378; J0692; J1650; J1815; J7030; J7050; J7060; Q9967